=== PATIENT | male | born 1955 | race Caucasian/White ===

== ENCOUNTER 2021-03-06 09:48 | Outpatient (CLI) | payer MEDICARE, MEDICAID ==
[~2021-03-06 09:48] MED LIST: Iopamidol-370 76% 500 ML 1 ML ONE
== END 2021-03-06 09:49 | disposition home or self-care (01) ==
LOC: BICCT 09:48
PROVIDERS: ATTEND Thoracic Surgery (Cardiothoracic Vascular Surgery)
DX: I71.4 Abdominal aortic aneurysm, without rupture (principal); I10 Essential (primary) hypertension; B19.20 Unspecified viral hepatitis C without hepatic coma; K76.89 Other specified diseases of liver
CPT/HCPCS: 36415; 74174; 80048; 80061; 80076; 85025; Q9967

== ENCOUNTER 2022-06-27 14:48 | Inpatient (IN) | payer OTHER, MEDICAID ==
[2022-06-27 15:57] LABS: #Lymphocytes 0.7 thou/uL (1.20-3.40); #Monocytes 0.5 thou/uL (0.11-0.59); #Neutrophils 7.6 thou/uL (1.40-6.50); %Eosinophils 0.4 % (0.0-10.0); %Lymphocytes 8.1 % (21.0-51.0); %Monocytes 5.5 % (0.0-10.0); Hemoglobin 11.6 g/dL (14.0-18.0); Mean Corpuscular HGB CONC 33.8 g/dL (32.0-36.0); Mean Corpuscular Hemoglobin 33.7 pg (27.0-31.0); Mean Corpuscular Volume 99.9 fL (78.0-98.0); RBC Distribution Width 11.9 % (11.5-14.5); Red Blood Cell (RBC) Count 3.45 mill/uL (4.70-6.10); White Blood Cell (WBC) Count 8.8 thou/uL (4.8-10.8)
[2022-06-27 16:11] LABS: ALT (SGPT) 17 U/L (8-55); AST (SGOT) 19 U/L (5-34); Albumin 2.8 g/dL (3.4-4.8); Alkaline Phosphatase 67 U/L (40-110); Anion Gap 16 mmol/L (10-20); BUN (Urea Nitrogen) 30 mg/dL (8.4-25.7); Bilirubin, Total 0.7 mg/dL (0.2-1.2); Calc. Creatinine Clearance 0 mL/min (70-130); Calcium 6.6 mg/dL (7.8-10.44); Carbon Dioxide 15 mmol/L (23-31); Chloride 114 mmol/L (98-107); Estimated GFR 71; Glucose 78 mg/dL (80-115); Potassium 3.9 mmol/L (3.5-5.1); Protein, Total 5.8 g/dL (5.8-8.1); Sodium 141 mmol/L (136-145)
[2022-06-27 16:16] LABS: MDiff Complete? YES; Macrocytosis SLIGHT = 6-15 cells (100X) (0-5/hpf); Mean Platelet Volume 7.9 fL (7.4-10.4); Platelet Count 108 thou/uL (130-400); Platelet Morphology Comment Appears Decreased; Polychromasia SLIGHT = 2-3 cells (100X) (0-2/hpf)
[2022-06-27] MEDS ORDERED: Lidocaine 1% PF 5 ML VIAL ONE (16:43)
[2022-06-27] MEDS ORDERED: Ondansetron PF 4 MG/2 ML Vial IVP PRN (16:46)
[2022-06-27] MEDS ORDERED: Dextrose 5% in Water 1,000 ML IV PRN (16:46)
[2022-06-27] MEDS ORDERED: hydrALAZINE 20 MG/ML VIAL SLOW IVP PRN (16:46)
[2022-06-27] MEDS ORDERED: Ondansetron ODT 4 MG TAB PO PRN (16:46)
[2022-06-27] MEDS ORDERED: Dextrose 50% Abboject 50 ML SYRINGE SLOW IVP PRN (16:46)
[2022-06-27 17:24] LABS: INR-International Normal Ratio 1.3; PTT 28.7 sec (22.9-36.1); Prothrombin Time 16.7 sec (12.0-14.7)
[2022-06-27 18:27] LABS: SARS-CoV-2 NAA Rapid Test Not Detected (NotDetected)
[2022-06-27] MEDS ORDERED: Bacitracin 1 PK ONE (19:44)
[2022-06-27 20:34] VITALS: BMI 20.7
[2022-06-27] MEDS: Sodium Chloride 0.9% 1,000 ML IV SCH (22:15)
[2022-06-27] MEDS: Famotidine/PF 20 mg/2ml Vial SLOW IVP SCH (22:15)
[2022-06-28] MEDS: Acetaminophen 500 MG TAB PO SCH ×5 (00:21→23:45)
[2022-06-28] MEDS: Sodium Chloride 0.9% 1,000 ML IV SCH ×3 (02:24→23:47)
[2022-06-28 03:57] LABS: #Lymphocytes 1.5 thou/uL (1.20-3.40); #Monocytes 0.9 thou/uL (0.11-0.59); #Neutrophils 5.9 thou/uL (1.40-6.50); %Basophils 0.2 % (0.0-1.0); %Eosinophils 0.4 % (0.0-10.0); %Lymphocytes 18.2 % (21.0-51.0); %Monocytes 10.4 % (0.0-10.0); %Neutrophils 70.8 % (42.0-75.0); Hemoglobin 13.2 g/dL (14.0-18.0); Mean Corpuscular HGB CONC 33.5 g/dL (32.0-36.0); Mean Corpuscular Hemoglobin 33.7 pg (27.0-31.0); Mean Platelet Volume 8.3 fL (7.4-10.4); Platelet Count 115 thou/uL (130-400); RBC Distribution Width 12.1 % (11.5-14.5); Red Blood Cell (RBC) Count 3.93 mill/uL (4.70-6.10); White Blood Cell (WBC) Count 8.3 thou/uL (4.8-10.8)
[2022-06-28 04:43] LABS: Anion Gap 17 mmol/L (10-20); BUN (Urea Nitrogen) 29 mg/dL (8.4-25.7); Calc. Creatinine Clearance 55 mL/min (70-130); Calcium 8.4 mg/dL (7.8-10.44); Carbon Dioxide 16 mmol/L (23-31); Chloride 108 mmol/L (98-107); Estimated GFR 64; Glucose 83 mg/dL (80-115); Magnesium 2.1 mg/dL (1.6-2.6); Phosphorus 2.6 mg/dL (2.3-4.7); Potassium 4.4 mmol/L (3.5-5.1); Sodium 137 mmol/L (136-145)
[2022-06-28] MEDS ORDERED: Acetaminophen/Codeine 30-300mg Tablet PO SCH (06:00)
[2022-06-28] MEDS: Famotidine/PF 20 mg/2ml Vial SLOW IVP SCH ×2 (09:05→21:06)
[2022-06-28] MEDS: Oxazepam 10 MG CAP PO SCH ×2 (15:14→21:06)
[2022-06-28] MEDS: Nicotine 14 MG PATCH TD SCH (15:14)
[2022-06-28] MEDS: Tamsulosin HCl 0.4 MG CAP PO SCH (21:06)
[2022-06-28] MEDS: Atorvastatin Calcium 40 MG TAB PO SCH (21:06)
[2022-06-28] MEDS: Acetaminophen/Codeine 30-300mg Tablet PO PRN (21:09)
[2022-06-29] MEDS: Acetaminophen 500 MG TAB PO SCH (05:37)
[2022-06-29] MEDS: Oxazepam 10 MG CAP PO SCH ×3 (05:37→20:56)
[2022-06-29 07:58] LABS: #Eosinphils 0.1 thou/uL (0.0-0.7); #Lymphocytes 1.5 thou/uL (1.20-3.40); #Monocytes 0.5 thou/uL (0.11-0.59); #Neutrophils 3.4 thou/uL (1.40-6.50); %Basophils 0.3 % (0.0-1.0); %Lymphocytes 27.5 % (21.0-51.0); %Monocytes 9.8 % (0.0-10.0); %Neutrophils 60.4 % (42.0-75.0); Hemoglobin 12.9 g/dL (14.0-18.0); Mean Corpuscular HGB CONC 33.2 g/dL (32.0-36.0); Mean Corpuscular Hemoglobin 33.5 pg (27.0-31.0); Mean Platelet Volume 9.1 fL (7.4-10.4); Platelet Count 83 thou/uL (130-400); RBC Distribution Width 12.3 % (11.5-14.5); Red Blood Cell (RBC) Count 3.85 mill/uL (4.70-6.10); White Blood Cell (WBC) Count 5.6 thou/uL (4.8-10.8)
[2022-06-29 08:31] LABS: Anion Gap 12 mmol/L (10-20); BUN (Urea Nitrogen) 20 mg/dL (8.4-25.7); Calc. Creatinine Clearance 73 mL/min (70-130); Calcium 7.9 mg/dL (7.8-10.44); Carbon Dioxide 17 mmol/L (23-31); Chloride 111 mmol/L (98-107); Estimated GFR 92; Glucose 93 mg/dL (80-115); Magnesium 1.9 mg/dL (1.6-2.6); Phosphorus 2.1 mg/dL (2.3-4.7); Potassium 4.4 mmol/L (3.5-5.1); Sodium 136 mmol/L (136-145)
[2022-06-29] MEDS: Multivitamin W/ Minerals 1 TAB PO SCH (09:14)
[2022-06-29] MEDS: Polyethylene Glycol 3350 17 GM Packet PO SCH (09:14)
[2022-06-29] MEDS: Thiamine 100 MG TAB PO SCH (09:14)
[2022-06-29] MEDS: Folic Acid 1 MG TAB PO SCH (09:14)
[2022-06-29] MEDS: Famotidine 20 MG TAB PO SCH ×2 (09:14→20:58)
[2022-06-29] MEDS: Senokot S 8.6-50 MG TAB PO SCH ×2 (09:15→20:56)
[2022-06-29] MEDS: Acetaminophen 325 MG TAB PO SCH ×3 (09:15→20:59)
[2022-06-29] MEDS: Tamsulosin HCl 0.4 MG CAP PO SCH ×2 (09:15→20:56)
[2022-06-29] MEDS ORDERED: Sodium Phosphate 30 MMOL in Sodium Chloride 0.9% 250 ML 250 ML IVPB SCH (10:00)
[2022-06-29] MEDS: Sodium Chloride 0.9% 1,000 ML IV SCH (11:46)
[2022-06-29] MEDS: Nicotine 14 MG PATCH TD SCH (14:31)
[2022-06-29] MEDS: Erythromycin Base 0.5% Oint 1 GM TUBE EA EYE SCH ×2 (18:47→20:59)
[2022-06-29] MEDS: Atorvastatin Calcium 40 MG TAB PO SCH (20:58)
[2022-06-30] MEDS: Acetaminophen 325 MG TAB PO SCH ×4 (03:00→20:26)
[2022-06-30] MEDS: Oxazepam 10 MG CAP PO SCH ×4 (06:03→23:54)
[2022-06-30 06:12] LABS: #Eosinphils 0.1 thou/uL (0.0-0.7); #Lymphocytes 0.9 thou/uL (1.20-3.40); #Monocytes 0.4 thou/uL (0.11-0.59); #Neutrophils 3.8 thou/uL (1.40-6.50); %Basophils 0.3 % (0.0-1.0); %Eosinophils 2.6 % (0.0-10.0); %Lymphocytes 17.5 % (21.0-51.0); %Monocytes 7.3 % (0.0-10.0); %Neutrophils 72.3 % (42.0-75.0); Hemoglobin 13.1 g/dL (14.0-18.0); Mean Corpuscular HGB CONC 32.8 g/dL (32.0-36.0); Mean Corpuscular Hemoglobin 33.2 pg (27.0-31.0); Mean Platelet Volume 8.4 fL (7.4-10.4); Platelet Count 130 thou/uL (130-400); RBC Distribution Width 12.3 % (11.5-14.5); Red Blood Cell (RBC) Count 3.93 mill/uL (4.70-6.10); White Blood Cell (WBC) Count 5.2 thou/uL (4.8-10.8)
[2022-06-30 06:48] LABS: Anion Gap 13 mmol/L (10-20); BUN (Urea Nitrogen) 14 mg/dL (8.4-25.7); Calc. Creatinine Clearance 80 mL/min (70-130); Calcium 8.2 mg/dL (7.8-10.44); Carbon Dioxide 23 mmol/L (23-31); Chloride 106 mmol/L (98-107); Estimated GFR 95; Glucose 82 mg/dL (80-115); Magnesium 1.7 mg/dL (1.6-2.6); Phosphorus 2.9 mg/dL (2.3-4.7); Potassium 3.6 mmol/L (3.5-5.1); Sodium 138 mmol/L (136-145)
[2022-06-30] MEDS: Folic Acid 1 MG TAB PO SCH (09:08)
[2022-06-30] MEDS: Thiamine 100 MG TAB PO SCH (09:08)
[2022-06-30] MEDS: Nicotine 14 MG PATCH TD SCH (09:08)
[2022-06-30] MEDS: Famotidine 20 MG TAB PO SCH ×2 (09:08→20:27)
[2022-06-30] MEDS: Senokot S 8.6-50 MG TAB PO SCH ×2 (09:08→20:28)
[2022-06-30] MEDS: Multivitamin W/ Minerals 1 TAB PO SCH (09:08)
[2022-06-30] MEDS: Tamsulosin HCl 0.4 MG CAP PO SCH ×2 (09:09→20:27)
[2022-06-30] MEDS: Erythromycin Base 0.5% Oint 1 GM TUBE EA EYE SCH ×4 (09:09→20:27)
[2022-06-30] MEDS: Polyethylene Glycol 3350 17 GM Packet PO SCH (09:09)
[2022-06-30] MEDS ORDERED: Lisinopril 10 MG TAB PO SCH (09:15)
[2022-06-30] MEDS ORDERED: Potassium Phosphate 15 MMOL in Sodium Chloride 0.9% 250 ML 250 ML IVPB SCH (10:00)
[2022-06-30] MEDS ORDERED: Magnesium 2 GM/50 ML(in water) 2 GM in Premix Bag 1 BAG IVPB SCH (10:00)
[2022-06-30] MEDS: Atorvastatin Calcium 40 MG TAB PO SCH (20:27)
[2022-07-01] MEDS: Acetaminophen 325 MG TAB PO SCH ×4 (02:59→20:45)
[2022-07-01] MEDS: Oxazepam 10 MG CAP PO SCH ×3 (05:09→17:46)
[2022-07-01] MEDS: Senokot S 8.6-50 MG TAB PO SCH ×2 (09:06→20:46)
[2022-07-01] MEDS: Lisinopril 10 MG TAB PO SCH (09:06)
[2022-07-01] MEDS: Tamsulosin HCl 0.4 MG CAP PO SCH ×2 (09:06→20:46)
[2022-07-01] MEDS: Nicotine 14 MG PATCH TD SCH (09:06)
[2022-07-01] MEDS: Folic Acid 1 MG TAB PO SCH (09:07)
[2022-07-01] MEDS: Famotidine 20 MG TAB PO SCH ×2 (09:07→20:46)
[2022-07-01] MEDS: Multivitamin W/ Minerals 1 TAB PO SCH (09:07)
[2022-07-01] MEDS: Erythromycin Base 0.5% Oint 1 GM TUBE EA EYE SCH ×4 (09:07→20:46)
[2022-07-01] MEDS: Thiamine 100 MG TAB PO SCH (09:35)
[2022-07-01] MEDS: Polyethylene Glycol 3350 17 GM Packet PO SCH (09:35)
[2022-07-01] MEDS: Atorvastatin Calcium 40 MG TAB PO SCH (20:45)
[2022-07-02] MEDS: Oxazepam 10 MG CAP PO SCH ×4 (00:10→18:04)
[2022-07-02] MEDS: Acetaminophen/Codeine 30-300mg Tablet PO PRN ×2 (00:14→21:36)
[2022-07-02] MEDS: Acetaminophen 325 MG TAB PO SCH ×4 (02:17→21:37)
[2022-07-02] MEDS: Lisinopril 10 MG TAB PO SCH (08:21)
[2022-07-02] MEDS: Famotidine 20 MG TAB PO SCH ×2 (08:21→21:35)
[2022-07-02] MEDS: Thiamine 100 MG TAB PO SCH (08:22)
[2022-07-02] MEDS: Senokot S 8.6-50 MG TAB PO SCH ×2 (08:22→21:36)
[2022-07-02] MEDS: Folic Acid 1 MG TAB PO SCH (08:22)
[2022-07-02] MEDS: Tamsulosin HCl 0.4 MG CAP PO SCH ×2 (08:22→21:35)
[2022-07-02] MEDS: Multivitamin W/ Minerals 1 TAB PO SCH (08:22)
[2022-07-02] MEDS: Erythromycin Base 0.5% Oint 1 GM TUBE EA EYE SCH ×4 (08:23→21:37)
[2022-07-02] MEDS: Polyethylene Glycol 3350 17 GM Packet PO SCH (10:09)
[2022-07-02] MEDS: Nicotine 14 MG PATCH TD SCH (12:00)
[2022-07-02] MEDS: Atorvastatin Calcium 40 MG TAB PO SCH (21:35)
[2022-07-03] MEDS: Acetaminophen 325 MG TAB PO SCH ×4 (01:44→20:21)
[2022-07-03] MEDS: Oxazepam 10 MG CAP PO SCH ×5 (01:44→23:43)
[2022-07-03] MEDS: Lisinopril 10 MG TAB PO SCH (09:39)
[2022-07-03] MEDS: Thiamine 100 MG TAB PO SCH (09:39)
[2022-07-03] MEDS: Famotidine 20 MG TAB PO SCH ×2 (09:39→20:21)
[2022-07-03] MEDS: Multivitamin W/ Minerals 1 TAB PO SCH (09:39)
[2022-07-03] MEDS: Folic Acid 1 MG TAB PO SCH (09:39)
[2022-07-03] MEDS: Tamsulosin HCl 0.4 MG CAP PO SCH ×2 (09:39→20:21)
[2022-07-03] MEDS: Erythromycin Base 0.5% Oint 1 GM TUBE EA EYE SCH ×4 (09:45→20:30)
[2022-07-03] MEDS: Polyethylene Glycol 3350 17 GM Packet PO SCH (11:05)
[2022-07-03] MEDS: Senokot S 8.6-50 MG TAB PO SCH ×2 (11:05→20:22)
[2022-07-03] MEDS: Nicotine 14 MG PATCH TD SCH (12:40)
[2022-07-03] MEDS: Atorvastatin Calcium 40 MG TAB PO SCH (20:21)
[2022-07-04] MEDS: Acetaminophen 325 MG TAB PO SCH ×4 (01:04→19:45)
[2022-07-04] MEDS: Oxazepam 10 MG CAP PO SCH ×4 (05:42→23:42)
[2022-07-04] MEDS: Senokot S 8.6-50 MG TAB PO SCH ×2 (09:55→19:46)
[2022-07-04] MEDS: Multivitamin W/ Minerals 1 TAB PO SCH (09:55)
[2022-07-04] MEDS: Famotidine 20 MG TAB PO SCH ×2 (09:55→19:46)
[2022-07-04] MEDS: Lisinopril 10 MG TAB PO SCH (09:55)
[2022-07-04] MEDS: Folic Acid 1 MG TAB PO SCH (09:55)
[2022-07-04] MEDS: Tamsulosin HCl 0.4 MG CAP PO SCH ×2 (09:55→19:45)
[2022-07-04] MEDS: Thiamine 100 MG TAB PO SCH (09:55)
[2022-07-04] MEDS: Polyethylene Glycol 3350 17 GM Packet PO SCH (09:55)
[2022-07-04] MEDS: Erythromycin Base 0.5% Oint 1 GM TUBE EA EYE SCH ×4 (09:56→20:09)
[2022-07-04] MEDS: Nicotine 14 MG PATCH TD SCH (15:18)
[2022-07-04] MEDS: Atorvastatin Calcium 40 MG TAB PO SCH (19:46)
[2022-07-05] MEDS: Acetaminophen 325 MG TAB PO SCH ×4 (05:10→20:26)
[2022-07-05] MEDS: Oxazepam 10 MG CAP PO SCH ×3 (05:43→18:20)
[2022-07-05] MEDS: Polyethylene Glycol 3350 17 GM Packet PO SCH (09:13)
[2022-07-05] MEDS: Multivitamin W/ Minerals 1 TAB PO SCH (09:14)
[2022-07-05] MEDS: Tamsulosin HCl 0.4 MG CAP PO SCH ×2 (09:14→20:19)
[2022-07-05] MEDS: Senokot S 8.6-50 MG TAB PO SCH ×2 (09:14→20:19)
[2022-07-05] MEDS: Folic Acid 1 MG TAB PO SCH (09:14)
[2022-07-05] MEDS: Famotidine 20 MG TAB PO SCH ×2 (09:14→20:19)
[2022-07-05] MEDS: Lisinopril 10 MG TAB PO SCH (09:14)
[2022-07-05] MEDS: Thiamine 100 MG TAB PO SCH (09:14)
[2022-07-05] MEDS: Erythromycin Base 0.5% Oint 1 GM TUBE EA EYE SCH ×4 (09:15→20:26)
[2022-07-05] MEDS: Nicotine 14 MG PATCH TD SCH (15:28)
[2022-07-05] MEDS: Atorvastatin Calcium 40 MG TAB PO SCH (20:19)
[2022-07-06] MEDS: Oxazepam 10 MG CAP PO SCH ×4 (00:55→17:46)
[2022-07-06] MEDS: Acetaminophen 325 MG TAB PO SCH ×4 (00:56→20:19)
[2022-07-06] MEDS: Lisinopril 10 MG TAB PO SCH (08:30)
[2022-07-06] MEDS: Thiamine 100 MG TAB PO SCH (08:31)
[2022-07-06] MEDS: Tamsulosin HCl 0.4 MG CAP PO SCH ×2 (08:31→20:20)
[2022-07-06] MEDS: Famotidine 20 MG TAB PO SCH ×2 (08:31→20:19)
[2022-07-06] MEDS: Folic Acid 1 MG TAB PO SCH (08:31)
[2022-07-06] MEDS: Polyethylene Glycol 3350 17 GM Packet PO SCH (08:31)
[2022-07-06] MEDS: Multivitamin W/ Minerals 1 TAB PO SCH (08:31)
[2022-07-06] MEDS: Senokot S 8.6-50 MG TAB PO SCH ×2 (08:31→20:20)
[2022-07-06] MEDS: Erythromycin Base 0.5% Oint 1 GM TUBE EA EYE SCH ×3 (08:32→17:46)
[2022-07-06] MEDS: Nicotine 14 MG PATCH TD SCH (14:27)
[2022-07-06] MEDS: Atorvastatin Calcium 40 MG TAB PO SCH (20:19)
[2022-07-07] MEDS: Oxazepam 10 MG CAP PO SCH ×3 (00:39→13:17)
[2022-07-07] MEDS: Acetaminophen 325 MG TAB PO SCH ×3 (03:37→13:17)
[2022-07-07] MEDS: Folic Acid 1 MG TAB PO SCH (08:15)
[2022-07-07] MEDS: Thiamine 100 MG TAB PO SCH (08:15)
[2022-07-07] MEDS: Famotidine 20 MG TAB PO SCH (08:15)
[2022-07-07] MEDS: Multivitamin W/ Minerals 1 TAB PO SCH (08:15)
[2022-07-07] MEDS: Tamsulosin HCl 0.4 MG CAP PO SCH (08:15)
[2022-07-07] MEDS: Lisinopril 10 MG TAB PO SCH (08:15)
[2022-07-07] MEDS: Polyethylene Glycol 3350 17 GM Packet PO SCH (08:16)
[2022-07-07] MEDS: Senokot S 8.6-50 MG TAB PO SCH (08:16)
[2022-07-07 08:47] LABS: Anion Gap 13 mmol/L (10-20); BUN (Urea Nitrogen) 22 mg/dL (8.4-25.7); Calc. Creatinine Clearance 61 mL/min (70-130); Calcium 9.3 mg/dL (7.8-10.44); Carbon Dioxide 23 mmol/L (23-31); Chloride 104 mmol/L (98-107); Estimated GFR 75; Glucose 94 mg/dL (80-115); Magnesium 2.1 mg/dL (1.6-2.6); Phosphorus 2.9 mg/dL (2.3-4.7); Potassium 4.4 mmol/L (3.5-5.1); Sodium 136 mmol/L (136-145)
[2022-07-07] MEDS ORDERED: Lisinopril 10 MG TAB PO SCH (08:57)
[2022-07-07] MEDS ORDERED: Sodium Chloride 0.9% 1,000 ML IV SCH (09:00)
[2022-07-07 12:12] VITALS: BP 151/87; TEMP 98
[2022-07-07] MEDS: Nicotine 14 MG PATCH TD SCH (13:17)
[2022-07-08] MEDS ORDERED: Lisinopril 10 MG TAB PO SCH (09:00)
== END 2022-07-07 16:20 | DRG 562 ==
LOC: ERS 14:48 → UNDOADMIN 16:46 → ERHOLD 16:46 → CCU 21:35 → ERHOLD 21:35 → SURG A 06-29 12:27
PROVIDERS: ADMIT Surgery; ATTEND Surgery
DX: S42.291A Other displaced fracture of upper end of right humerus, initial encounter for closed fracture (principal); S06.359A Traumatic hemorrhage of left cerebrum with loss of consciousness of unspecified duration, initial encounter; I69.954 Hemiplegia and hemiparesis following unspecified cerebrovascular disease affecting left non-dominant side; E46 Unspecified protein-calorie malnutrition; Z20.822 Contact with and (suspected) exposure to COVID-19; W01.0XXA Fall on same level from slipping, tripping and stumbling without subsequent striking against object, initial encounter; F17.210 Nicotine dependence, cigarettes, uncomplicated; R40.2362 Coma scale, best motor response, obeys commands, at arrival to emergency department; R40.2142 Coma scale, eyes open, spontaneous, at arrival to emergency department; R40.2252 Coma scale, best verbal response, oriented, at arrival to emergency department; S01.112A Laceration without foreign body of left eyelid and periocular area, initial encounter; R00.1 Bradycardia, unspecified; E83.39 Other disorders of phosphorus metabolism; D69.6 Thrombocytopenia, unspecified; N40.0 Benign prostatic hyperplasia without lower urinary tract symptoms; H10.33 Unspecified acute conjunctivitis, bilateral; Z68.20 Body mass index [BMI] 20.0-20.9, adult; Z79.899 Other long term (current) drug therapy
CPT/HCPCS: 12015; 36415; 70450; 70486; 72125; 80048; 80307; 83735; 84100; 84484; 85025; 93005; 93306; 93970; G0390; J0360; J3475; J7050; J7620; S0028; U0002; U0003; U0005